=== PATIENT | female | born 1970 | race African-American/Black ===

== ENCOUNTER 2019-10-07 07:43 | Emergency (ER) | payer BC ==
[~2019-10-07] VITALS: Ht 165.1 cm; Wt 106.6 kg
[2019-10-07] MEDS ORDERED: DONNATAL/LIDOCAINE/MAALOX 30 ML SUSP PO ONE (08:30)
[2019-10-07] MEDS ORDERED: ASPIRIN 81 MG CHEW TAB PO ONE (08:30)
[2019-10-07] MEDS ORDERED: LIDOCAINE VISC 2% SOLN 15 ML UDC ONE (08:39)
[2019-10-07] MEDS ORDERED: BELLADONNA ALK/PHENOBARBITAL 5 ML UDC ONE (08:40)
[2019-10-07] MEDS ORDERED: ASPIRIN 81 MG CHEW TAB ONE (08:40)
[2019-10-07] MEDS ORDERED: MAGNESIUM/ALUMINUM/SIMETHICONE 30 ML UDC ONE (08:40)
--- NOTE | 2019-10-07 08:55 | Diagnostic Imaging Report ---
EXAMINATION: PA and lateral views of the chest. COMPARISON: None CLINICAL HISTORY: Chest pain DISCUSSION: The lungs are well inflated. No focal airspace consolidation, pleural effusion, or pneumothorax. Cardiomediastinal contour and pulmonary vasculature are within normal limits. No acute osseous abnormalities. IMPRESSION: No acute cardiopulmonary abnormalities. Signed by: Dr. Roscoe Celaya M.D. on 10/07/2019 8:52 AM
[2019-10-07 09:00] LABS: BASOPHILS % 0.6 % (0.0-1.0); EOSINOPHILS # (AUTO) 0.1 (0.0-0.4); EOSINOPHILS % 1.2 % (0.0-6.0); HEMATOCRIT 30.8 % (34.2-44.1); LYMPHOCYTES # (AUTO) 2.4 (1.0-3.2); LYMPHOCYTES % 34.4 % (18.0-39.1); MEAN CORPUSCULAR HGB CONC 29.2 g/dL (31-35); MEAN CORPUSCULAR VOLUME 68.4 fL (81-99); MONOCYTES # (AUTO) 0.6 (0.2-0.8); MONOCYTES % 8.8 % (4.4-11.3); NEUTROPHILS # (AUTO) 3.8 (2.1-6.9); NEUTROPHILS % 54.7 % (38.7-80.0); PLATELET COUNT 376 x10e3/uL (140-360); RED CELL DISTRIBUTION WIDTH 17.7 % (11.7-14.4)
[2019-10-07 09:18] VITALS: BP 124/83
--- NOTE | 2019-10-07 09:40 | Emergency Department Note ---
History of Present Illnes History of Present Illness Chief Complaint: Chest Pain History of Present Illness This is a 49 year old female who presents with the chief compla int of chest pain. 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 She states that she has had a baseline constant pressure substernal pain which is a 2 out of 10. She states the pressure is less than a cat sitting on her chest, and would be equivalent to someone slightly pressing on her chest. She also has a diffuse ache and intermittent sharp pain in her chest. Denies any shortness of breath, she denies any immobilization, she denies any lower extremity swelling, she denies any diaphoresis, has had one episode of mild nausea this morning with no vomiting. The patient's mom of a heart attack at the age of 41. Her father had a stroke at a young age. He has a twin brother who has heart problems. She has hypertension which is well controlled with metoprolol and hydrochlorothiazide. She denies any cholesterol problems. States she doesn't smoke. She is not diabetic. The pain is not worse with exertion and is not relieved with rest. He states that it gets slightly worse about an hour after meals. She states that the pain radiates to her right scapula. States that she can re-create the scapular pain with movement of her right shoulder, however this movement does not reproduce any chest of her chest pain. Historian: Patient Arrival Mode: Car Plater Supervisor Required: No Onset (how long ago): day(s) Location: substernal Quality: dull and sharp Radiation: Reports back (right scapula) Severity: mild (constant dull pain is 2 out of 10), moderate (intermittent few second sharp pain is 6 out of 10) Onset quality: unable to specify Duration (how long): day(s) Timing of current episode: constant Progression: unchanged Chronicity: new Context: Denies recent illness, Denies recent surgery, Denies recent immobilization, Denies recent travel, Denies trauma/injury, Denies new medications, Denies hx of DVT/PE Relieving factors: none Exacerbating factors: eating Associated symptoms: Reports chest pain, Reports other (no vomiting, episode of mild nausea. No nausea now.); Denies cough, Denies diaphoresis, Denies fever/chills, Denies headaches, Denies loss of appetite, Denies malaise Treatments prior to arrival: aspirin (81 mg) Past Medical/Family History Physician Review I have reviewed the patient's past medical and family history. Any updates have been documented here. 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); Denies chills, Denies diaphoresis, Denies fever, Denies malaise Cardiovascular: Reports as per HPI, Reports chest pain; Denies edema (has long standing history of lower extremity edema which is well-controlled with hydrochlorothiazide), Denies palpitations, Denies syncope Respiratory: Denies chest congestion, Denies cough, Denies hemoptysis, Denies excessive phlegm production, Denies pain on inspiration, Denies pain with cough, Denies dyspnea, Denies dyspnea on exertion Gastrointestinal: Reports nausea (one episode); Denies abdominal pain (no history of gallbladder disease), Denies vomiting Genitourinary: Reports pain; Denies discharge, Denies dysuria, Denies hematuria Musculoskeletal: Reports back pain (right scapula) Neurological: Denies headache, Denies numbness, Denies paresthesia Psychological: Denies anxiety Endocrine: Denies excessive sweating Hematological/Lymphatic: Denies blood clots, Denies easy bleeding, Denies easy bruising Physical Exam Related Data Allergies: Coded Allergies: No Known Allergies (Unverified , 10/07/19) Triage Vital Signs Vital Signs Date Time Temp Pulse Resp B/P (MAP) Pulse Ox O2 Delivery O2 Flow Rate FiO2 10/07/19 07:52 98.8 77 17 153/89 100 Room Air Physical Exam CONSTITUTIONAL Constitutional: Present well-developed, Present well-nourished HENT HENT: Present normocephalic, Present atraumatic HENT L/R: Present left ext ear normal, Present right ext ear normal EYES Eyes: Reports conjunctivae normal; Denies left eye discharge, Denies right eye discharge NECK Neck: Present ROM normal, Present supple PULMONARY Pulmonary: Present effort normal, Present breath sounds normal; Absent respiratory distress (complete full sentences, handles secretions.) CARDIOVASCULAR Cardiovascular: Present regular rhythm, Present heart sounds normal, Present intact distal pulses, Present capillary refill normal, Present normal rate, Present other (substernal chest pain worse with palpation.) GASTROINTESTINAL Abdominal: Present soft, Present nontender GENITOURINARY SKIN Skin: Present warm, Present dry MUSCULOSKELETAL Musculoskeletal: Present other (right scapular pain reproducible with active range of motion against resistance.) NEUROLOGICAL Neurological: Present alert, Present oriented x 3 PSYCHOLOGICAL Psychological: Present mood/affect normal Results Laboratory Lab results reviewed: Yes Laboratory comments CT normal, troponin negative. WBC 6, Hem 9, HCT 30.8 Imaging Imaging results reviewed: Yes Imaging Comments EXAMINATION: PA and lateral views of the chest. COMPARISON: None CLINICAL HISTORY: Chest pain DISCUSSION: The lungs are well inflated. No focal airspace consolidation, pleural effusion, or pneumothorax. Cardiomediastinal contour and pulmonary vasculature are within normal limits. No acute osseous abnormalities. IMPRESSION: No acute cardiopulmonary abnormalities. Signed by: Dr. Roscoe Celaya M.D. on 10/07/2019 8:52 AM Procedures 12 Lead ECG Interpretation ECG Interpretation : ECG: ECG 1 Plater Supervisor: Interpreted by ED physician Date: Oct 07, 2019 Time: 07:52 Rhythm: sinus rhythm Rate: normal BPM: 76 QRS axis: normal ST segments normal: Yes T waves normal: Yes Clinical Impression: normal ECG Clinical Decision Tools HEART Score Date Taken: Oct 07, 2019 HEART Score: HEART Score Response (Comments) Value History Moderately suspicious 1 EKG Normal 0 Age 45 - 65 1 Risk factors 1 or 2 risk factors 1 Troponin < or = to normal limit Total 3 Assessment & Plan Medical Decision Making MDM Heart score of 2, risk of MACE 0.9-1.7%. EKG and initial troponin negative. Advised the patient d-dimer and possible CT scan to rule out PE and patient declined. Patient aware of risks of pulmonary embolism including and disability. Advise patient for admission for further chest pain workup and patient declined. Offered patient to stay in the emergency department for second set of enzymes and patient declined. Patient aware of limitations of emergency room workup for chest pain and aware of risk of permanent disability and . Reassessment Reassessment Patient had some relief of her symptoms with GI cocktail, however it was not complete. Assessment & Plan Final Impression: (1) Chest pain Depart Disposition: HOME, SELF-CARE Last Vital Signs Date Time Temp Pulse Resp B/P (MAP) Pulse Ox O2 Delivery O2 Flow Rate FiO2 10/07/19 07:52 98.8 77 17 153/89 100 Room Air Medications in the ED Aspirin 324 mg ONCE ONCE PO ; Start 10/07/19 at 08:30; Stop 10/07/19 at 08:32; Status DC Belladonna Alkaloids/ Phenobarbital 5 ml ONCE ONCE PO ; Start 10/07/19 at 08:30; Stop 10/07/19 at 08:32; Status DC Lidocaine HCl 15 ml STK-MED ONCE .ROUTE ; Start 10/07/19 at 08:39; Stop 10/07/19 at 08:33; Status DC Belladonna Alkaloids/ Phenobarbital 10 ml STK-MED ONCE .ROUTE ; Start 10/07/19 at 08:40; Stop 10/07/19 at 08:33; Status DC Aspirin 243 mg STK-MED ONCE .ROUTE ; Start 10/07/19 at 08:40; Stop 10/07/19 at 08:33; Status DC Magnesium Aluminum Silicate 30 ml STK-MED ONCE .ROUTE ; Start 10/07/19 at 08:40; Stop 10/07/19 at 08:33; Status DC EDUAR REYNOSO MD Oct 07, 2019 08:48
[2019-10-07 11:39] LABS: BAND NEUTROPHILS % (MANUAL) 2 %; EOSINOPHILS % (MANUAL) 1 % (0-7); LYMPHOCYTES % (MANUAL) 31 % (19-48); MONOCYTES % (MANUAL) 6 % (3.4-9.0); NEUTROPHILS % (MANUAL) 60 % (40-74)
[2019-10-07 11:40] LABS: HYPOCHROMASIA SLIGHT; MICROCYTOSIS SLIGHT; RBC MORPHOLOGY COMMENT ABNORMAL
== END 2019-10-07 09:25 | disposition home or self-care (01) ==
LOC: FSED 08:30
DX: R07.9 Chest pain, unspecified (principal); I10 Essential (primary) hypertension
CPT/HCPCS: 36415; 71046; 80053; 82553; 84484; 85025; 93005; 99284